=== PATIENT | female | born 1955 | race Caucasian/White ===

== ENCOUNTER 2021-01-02 14:50 | Emergency (ER) | payer MEDICARE, OTHER ==
[~2021-01-02 14:50] MED LIST: ATARAX25 MG PO; BONIVA150 MG PO; BUSPAR5 MG PO; CALCIUM600 MG PO; EPCLUSA 400 MG1 EACH PO; EPIPEN0.3 MG/0.3 IJ; INCRUSE ELLI62.5 MCG INH; IPRAT-ALBUT 0.5-3 ML PO; LINZESS145 MCG PO; MELOXICAM15 MG PO; NAPROXEN500 MG PO; NORCO 5-325 TA1 EACH PO; OSTERA TABLET1 EACH PO; PANTOPRAZOLE SO20 MG PO; PERCOCET 5-3251 EACH PO; SINGULAIR10 MG PO; SPIRIVA RESPIMAT4 G1 PO; SYMBICORT 80-46.9 GM PO; TRAMADOL HCL50 MG PO; VENTOLIN (2.5 MG/3 M INH; VENTOLIN HFA IN18 GM INH; VIT B-12 PO; VOLTAREN **OUT75 MG PO; XARELTO10 MG PO; XYZAL5 MG PO; ZYRTEC10 M3 PO
[2021-01-02 16:50] LABS: BASOPHIL 0.5 % (0-2); EOSINOPHIL 1.7 % (0-7); HCT 38.7 % (37.0-47.0); HGB 12.9 g/dl (12.5-16.0); LYMPHOCYTE 27.5 % (15-48); MCH 32.6 pg (25.0-31.0); MCHC 33.3 g/dL (32.0-36.0); MCV 97.7 fL (78.0-100.0); MONOCYTE 11.3 % (0-12); MPV 9.7 fL (6.0-9.5); NEUTROPHIL 58.7 % (41-80); NRBC 0; PLT 273 K/uL (150-400); RBC 3.96 M/uL (4.20-5.40); RDW 12.4 % (11.5-14.0); WBC 6.7 K/uL (4.0-10.5)
[2021-01-02 17:39] LABS: ALBUMIN 3.7 g/dL (3.4-5.0); BILIRUBIN - TOTAL 0.4 mg/dL (0.2-1.0); BUN/CREAT RATIO (CALC) 11.1 RATIO; CREATININE 0.9 mg/dL (0.51-0.95); GLOBULIN (CALCULATION) 3.6 g/dL; POTASSIUM 4.8 mmol/L (3.5-5.1); TOTAL PROTEIN 7.3 g/dL (6.4-8.2)
[2021-01-02 19:32] LABS: BILIRUBIN NEGATIVE (NEGATIVE); BLOOD NEGATIVE Ery/uL (NEGATIVE); CLARITY CLEAR (CLEAR); COLOR YELLOW (YELLOW); GLUCOSE (U) NORMAL (NORMAL); LEUKOCYTES 1+ Leu/uL (NEGATIVE); NITRITE NEGATIVE (NEGATIVE); PROTEIN NEGATIVE (NEGATIVE); UROBILINOGEN 0.2 mg/dL (0.2-1.0)
[2021-01-02 19:39] LABS: BACTERIA 2+; URINARY RBC RARE
[2021-01-02 19:44] LABS: GRANULAR CASTS TRACE
[2021-01-02] MEDS ORDERED: CEFDINIR300 MG PO (19:56)
[2021-01-02] MEDS ORDERED: PREDNISONE 20MG20 MG PO (19:56)
== END 2021-01-02 20:10 | disposition home or self-care (01) ==
LOC: FER 14:50
PROVIDERS: Physician Assistant
DX: J44.1 Chronic obstructive pulmonary disease with (acute) exacerbation (principal); J18.9 Pneumonia, unspecified organism; N39.0 Urinary tract infection, site not specified; I10 Essential (primary) hypertension; F17.210 Nicotine dependence, cigarettes, uncomplicated; Z88.0 Allergy status to penicillin; Z88.2 Allergy status to sulfonamides; Z91.040 Latex allergy status; Z20.822 Contact with and (suspected) exposure to COVID-19
CPT/HCPCS: 36415; 71045; 80053; 81001; 84145; 84484; 85025; 93005; J7512; U0002